=== PATIENT | female | born 1975 | race Caucasian/White ===

== ENCOUNTER 2020-11-09 06:27 | Emergency (ER) | payer MEDICAID, SELFPAY ==
[2020-11-09 06:27] VITALS: BP 140/91; PULSE 73; RESP 18; TEMP 36.2; O2SAT 100; BMI 27.1
[2020-11-09] MEDS: Tetracaine 0.5% Ophthalmic Bottle 1 DRP EACH EYE (06:40)
--- NOTE | 2020-11-09 06:40 | ED.VIS.GEN ---
History of Present Illness Chief Complaint: Eye Problem Informant: Patient Narrative: 45-year-old female presents with pain to her right eye. States that she was shifting a blanket approximately 6 hours ago in bed when the corner struck her in the eye. States that she has had pain since that time that was worse when she awoke. No significant vision change. Past Medical History - Allergies and Home Meds Allergies/Adverse Reactions: Allergies tramadol [From Ultram] Allergy (Verified 11/09/20 06:37) Rash naproxen [From Naprosyn] Adverse Reaction (Verified 11/09/20 06:37) Upset Stomach Primary Care Physician: Abbe Villa MD [Primary Care Provider] - Prior records reviewed: Yes Past Medical History: None Surgical History: noncontributory Lives: Spouse/ Significant Other Smoking Status: Current every day smoker Alcohol: None Drugs: None Review of Systems General: Denies: Chills, Fever, Sweats Eyes: Reports: - - right eye pain. Denies: Visual changes - bilaterally, Diplopia ENT: Denies: Rhinorrhea, Sore throat Cardiovascular: Denies: Chest pain, Palpitations Respiratory: Denies: Dyspnea, Cough, Dyspnea on exertion Gastrointestinal: Denies: Abdominal pain, Nausea, Vomiting, Diarrhea, Melena, Hematochezia Genitourinary: Denies: Dysuria, Hematuria, Frequency Musculoskeletal: Denies: Back pain, Extremity Pain Skin: Denies: Rash, Wounds Neurological: Denies: Headache, Weakness, Numbness Physical Exam Vital Signs/Narrative: Vital Signs Temp Pulse Resp BP Pulse Ox 11/09/20 06:27 97.2 F L 73 18 140/91 H 100 Inital Vital Signs reviewed: Yes General: Well nourished, Well developed, No Acute Distress Head: Normocephalic, Atraumatic Eyes: Perrl, EOMI, - - Evidence of corneal abrasion at 6 o clock position. Mild surrounding rudy-orbital edema. ENT: Moist mucous membranes, No rhinorrhea Neck: Supple, Nontender Cardiovascular: Regular rate, Regular rhythm, No murmurs Respiratory: No distress, CTA bilaterally, Chest nontender Abdomen: Soft, Nontender, Nondistended, Normal bowel sounds Back: Nontender, Normal Inspection Extremities: Nontender, No edema Skin: Normal color, No rash Neurological: Alert, Oriented x3, Cranial nerves II-XII grossly intact, Normal Strength, Normal Sensation Psychological: Normal affect, Normal Mood Diagnostic/Tx/Re-eval - Medical Decision Making Patient appears well and nontoxic. Will be treated with ophthalmic Toradol and Ciloxan. Given ophthalmologic follow-up. Stable at time of discharge. Impression: 1. Right eye corneal abrasion ED Disposition - Plan for ED Patient: Disposition: Home or Assisted Living Instructions: ED Corneal Abrasion Prescriptions: Ketorolac Tromethamine [Acular] 1 drp RIGHT EYE 5X/DAY #1 bottle Prescription Printed Ciprofloxacin 0.3% [Ciloxan] 1 drp RIGHT EYE Q2H #1 bottle Prescription Printed Referrals: Abbe Villa MD [Primary Care Provider] - Renny Martinez MD [STAFF PHYSICIAN] - 1 Day
[2020-11-09] MEDS: Fluorescein 1 MG STRIP 1 STRIP RIGHT EYE (06:54)
[2020-11-09 07:06] LABS: Mucous, Urine 0 SEEN /hpf (<or=2+)
[2020-11-09 07:07] LABS: Color, Urine Yellow (Yellow); Glucose, Dipstick Normal (Normal); Ketone-Dipstick Negative (Negative); Leukocyte Esterase-Dipstick Negative /ul (Negative); Nitrite-Dipstick Negative (Negative); Occult Blood-Urine Negative /ul (Negative); Protein-Dipstick Negative (Negative); Urine Bilirubin Dipstick Negative (Negative); Urine Clarity Clear (Clear); Urine Urobilinogen Normal (Normal)
[2020-11-09 07:29] LABS: Amorphous Sediment 1+; Bacteria 1+ /hpf (None Seen); Red Blood Cells-Urine 0-5 SEEN /hpf (0-5); Squamous Epithelial Cells - UA 0-5 SEEN /hpf (5-10); White Blood Cells 0-5 SEEN /hpf (0-5)
[2020-11-09 07:33] VITALS: RESP 16
== END 2020-11-09 07:34 | disposition home or self-care (01) ==
PROVIDERS: Emergency Provider Emergency Medicine
DX: S05.01XA Injury of conjunctiva and corneal abrasion without foreign body, right eye, initial encounter (principal); F17.200 Nicotine dependence, unspecified, uncomplicated; W22.8XXA Striking against or struck by other objects, initial encounter; Y93.89 Activity, other specified; Y92.009 Unspecified place in unspecified non-institutional (private) residence as the place of occurrence of the external cause; Y99.8 Other external cause status
CPT/HCPCS: 81001; 99283

== ENCOUNTER 2021-05-13 23:47 | Emergency (ER) | payer MEDICAID, SELFPAY ==
[2021-05-13 23:48] VITALS: BP 111/79; PULSE 96; RESP 18; TEMP 36.8; O2SAT 98; BMI 26.7
[2021-05-13 23:52] VITALS: BP 111/79; PULSE 96; RESP 18; TEMP 36.8; O2SAT 98
--- NOTE | 2021-05-14 00:08 | EX.ED.DYSGE1 ---
HPI History of Present Illness Chief Complaint: Abscess Informant: patient Onset/Context/Timing Onset: Weeks Context: Gradual Onset Timing: Waxes and wanes Narrative Narrative: Patient presents with multiple complaints. She states that she is homeless and feels that her feet are swollen because she was walking a lot yesterday. Of note it is cold and rainy tonight and patient came in dragging her suitcase. Patient states that she recently was seen at an urgent care for UTI but stopped taking the antibiotics because they made her feel bloated and smelled like chemicals. She is complaining of an abscess in her left axilla that has recently recurred. She reports having a sore throat 4 days ago but none currently. She states she has had some intermittent drainage from her eyes. [facility] Medical History Cervical root lesions, not elsewhere classified Chronic pain Depression Diabetic acidosis, type II Herniated disc Home Medications ciprofloxacin HCl 1 drp RIGHT EYE Q2H #1 bottle 11/09/20 [Rx Last Taken Unknown] ketorolac 1 drp RIGHT EYE 5X/DAY #1 bottle 11/09/20 [Rx Last Taken Unknown] sulfamethoxazole-trimethoprim [Bactrim DS] 1 tab PO BID #20 tab 05/14/21 [Rx Last Taken Unknown] Allergy/AdvReac Type Severity Reaction Status Date / Time tramadol [From Ultram] Allergy Rash Verified 11/09/20 06:37 naproxen [From Naprosyn] AdvReac Upset Verified 11/09/20 06:37 Stomach Social History Smoking Status: Current every day smoker tobacco type: cigarettes ROS ROS ED Constitutional Constitutional ED: Denies chills or fever(s) Eyes Eyes: Denies change in vision ENT ENT ED: Reports sore throat Cardiovascular Cardiovascular: Denies chest pain Respiratory/Chest Respiratory/Chest: Denies cough or dyspnea Gastrointestinal Gastrointestinal: Reports abdominal pain; Denies diarrhea, nausea or vomiting Genitourinary Genitourinary ED: Denies dysuria Musculoskeletal Musculoskeletal: Denies back pain Integumentary Reports abscess; Denies rash Neurologic Neurologic: Denies headache(s) or weakness Allergic/Immunologic Allergic/Immunologic ED: Denies urticaria EXAM Physical Exam Const Vital Signs: 05/13/21 23:48 05/13/21 23:52 05/14/21 04:12 Temperature 98.2 F 98.2 F Temperature Source Temporal Temporal Pulse Rate 96 96 Respiratory Rate 18 18 16 Blood Pressure 111/79 111/79 Blood Pressure Mean 89 89 Pulse Ox 98 98 Oxygen Delivery Method Room Air Room Air Positive well nourished and well developed General Appearance ED: well developed HEENT Reports moist mucous membranes Eyes PERRL and EOMs intact bilaterally Chest Wall inspection of chest normal and palpation of chest normal Resp normal respiratory effort and clear to auscultation bilaterally Cardio regular rate and regular rhythm GI normal to inspection, nondistended, normoactive bowel sounds and non-tender Palpation: soft Extremity normal to inspection Neuro oriented x3 Sensorium / Orientation: alert Psych mental status grossly normal Skin Skin Narrative: Cutaneous abscess to the left axilla measuring 1.5 cm in diameter. No overlying cellulitis. MDM MDM MDM Narrative Medical decision making narrative: Blood work and urinalysis obtained. Lab Data Attestation: I reviewed the patient's lab results. Labs: Laboratory Results - last 24 hr 05/14/21 05/14/21 05/14/21 00:20 00:20 05:11 WBC 7.2 RBC 4.39 Hgb 13.3 Hct 37.3 MCV 85.0 MCH 30.3 MCHC 35.7 RDW Std Deviation 38.9 RDW Coeff of Doris 12.6 Plt Count 266 MPV 10.1 Immature Gran % (Auto) 0.300 Neut % (Auto) 67.0 Lymph % (Auto) 23.2 [place] % (Auto) 7.8 Eos % (Auto) 1.1 Baso % (Auto) 0.6 Absolute Neuts (auto) 4.8 Absolute Lymphs (auto) 1.67 Nucleated RBC % 0 Sodium 141 Potassium 3.3 L Chloride 106 Carbon Dioxide 27.0 Anion Gap 8 BUN 13 Creatinine 0.67 Estim Creat Clear Calc 97.17 Est GFR (MDRD) Af Amer 121 Est GFR (MDRD) Non-Af 100 BUN/Creatinine Ratio 19.4 Glucose 99 Calcium 9.0 Total Bilirubin 0.50 Direct Bilirubin 0.15 AST 16 ALT 23 Alkaline Phosphatase 72 Total Protein 6.9 Albumin 3.6 Globulin 3.3 Urine Color Yellow Urine Clarity Clear Urine pH 6.5 Ur Specific [place] 1.020 Urine Protein 30 H Urine Glucose (UA) Normal Urine Ketones 15 H Urine Occult Blood Negative Urine Nitrite Negative Urine Bilirubin Negative Urine Urobilinogen 4 H Ur Leukocyte Esterase Negative Urine RBC 0 SEEN Urine WBC 0-5 SEEN Ur Squamous Epith Cells 0-5 SEEN Urine Bacteria 3+ Urine Mucus 2+ Treatment and Re-Evaluation Comments:: Potassium low at 3.3. This was replaced orally. Urinalysis shows 3+ bacteria but no nitrites and only 0-5 white cells. We will treat her with Bactrim for her abscess which will also cover urine. Patient had recently been on Keflex but did not complete the course. Patient states that she is homeless and does not have a phone. She tried the [facility] but they did not have any openings. She does believe she would have access to a phone to call in later today and speak with one of our social workers. I will ask her to do this to see if they have any other options to help her. Discharge Plan Triage Chief Complaint: Abscess ED Provider: Samantha Norton Dx/Rx/DC Orders Clinical Impression: Cutaneous abscess Instructions: ED Abscess Antibiotic Treatment Only Prescriptions: New sulfamethoxazole-trimethoprim [Bactrim DS] 800-160 mg tablet 1 tab PO BID Qty: 20 RF: 0 No Action ketorolac 5 ML drops 1 drp RIGHT EYE 5X/DAY Qty: 1 RF: 0 ciprofloxacin HCl 1 DRP bottle 1 drp RIGHT EYE Q2H Qty: 1 RF: 0 Primary Care Provider: Care Physician,No Primary Referrals: Ruslan Oliveros DO [STAFF PHYSICIAN] - As Needed Care Physician,No Primary [Primary Care Provider] - Disposition Disposition: Home, Self Care
[2021-05-14 00:46] LABS: Absolute Lymphocyte Count 1.67 X10^3/uL (0.83-4.51); Absolute Neutrophil Count 4.8 X10^3/uL (2.0-7.7); Basophil# 0.04 X10^3/uL; Basophil% 0.6 % (0-1); Eosinophil# 0.08 X10^3/uL; Eosinophils% 1.1 % (0-5); Hematocrit 37.3 % (37-47); Hemoglobin 13.3 g/dL (12.0-15.0); Lymphocyte # 1.67 X10^3/ul (0.83-4.51); Lymphocyte % 23.2 % (19-41); Mean Corp Hgb Conc 35.7 g/dL (32-36); Mean Corpuscular Hgb 30.3 pg (27.0-32.0); Mean Platelet Vol. 10.1 fl (6.2-12.0); Monocyte# 0.56 X10^3/uL; Monocyte% 7.8 % (0-10); NRBC Flagged by Analyzer 0 % (0-5); Neutrophil # 4.82 X10^3/uL (2.7-7.7); Platelet Count 266 K/mm3 (150-450); RBC Distribution Width CV 12.6 % (11.6-14.6); RBC Distribution Width SD 38.9 fl (35.1-43.9); Red Blood Count 4.39 M/mm3 (4.2-5.4); White Blood Count 7.2 K/mm3 (4.4-11.0)
[2021-05-14 01:08] LABS: AST(SGOT) 16 U/L (15-37); Alanine Aminotransfer ALT/SGPT 23 U/L (13-56); Albumin, Serum 3.6 g/dL (3.2-5.0); Alkaline Phosphatase 72 U/L (45-117); Anion Gap 8 (5-15); BUN 13 mg/dL (7-18); BUN/Creat Ratio 19.4 RATIO (10-20); Bilirubin, Direct 0.15 mg/dL (0.00-0.30); Chloride 106 mmol/L (98-107); Creatinine, Serum 0.67 mg/dL (0.55-1.02); EST Glomerular Filtration Rate 100 mL/min (>60); Est Glom Filt Rate - Afr Amer 121 mL/min (>60); Estimated Creatinine Clearance 97.17 ml/min; Globulin 3.3 g/dL (2.2-4.2); Glucose 99 mg/dL (74-106); Potassium 3.3 mmol/L (3.5-5.1); Protein, Total 6.9 g/dL (6.4-8.2); Sodium Level 141 mmol/L (136-145)
[2021-05-14] MEDS: Potassium Chloride Oral Tablet 20 MEQ 40 MEQ PO (01:48)
[2021-05-14 04:12] VITALS: RESP 16
[2021-05-14 05:26] LABS: Red Blood Cells-Urine 0 SEEN /hpf (0-5)
[2021-05-14 05:27] LABS: Color, Urine Yellow (Yellow); Glucose, Dipstick Normal (Normal); Ketone-Dipstick 15 mg/dl (Negative); Leukocyte Esterase-Dipstick Negative /ul (Negative); Nitrite-Dipstick Negative (Negative); Occult Blood-Urine Negative /ul (Negative); Protein-Dipstick 30 mg/dl (Negative); Urine Bilirubin Dipstick Negative (Negative); Urine Clarity Clear (Clear); Urine Urobilinogen 4 mg/dl (Normal); Urine pH 6.5 (5.0 - 8.0)
[2021-05-14 06:04] LABS: Bacteria 3+ /hpf (None Seen); White Blood Cells 0-5 SEEN /hpf (0-5)
[2021-05-14 06:05] LABS: Mucous, Urine 2+ /hpf (<or=2+)
[2021-05-14 06:06] LABS: Squamous Epithelial Cells - UA 0-5 SEEN /hpf (5-10)
[2021-05-14 06:28] VITALS: BP 110/72; PULSE 82; RESP 14; O2SAT 100
[2021-05-14] MEDS: Smz/Tmp Ds Tablet 1 TABLET PO (06:29)
== END 2021-05-14 06:36 | disposition home or self-care (01) ==
PROVIDERS: Emergency Provider Emergency Medicine
DX: L02.412 Cutaneous abscess of left axilla (principal); F17.210 Nicotine dependence, cigarettes, uncomplicated; Z59.00 Homelessness unspecified
CPT/HCPCS: 80048; 80076; 81001; 85025; 99284; A4216